=== PATIENT | male | born 1950 | race Hispanic/Latino ===

== ENCOUNTER 2020-11-06 20:44 | Inpatient (IN) | payer MEDICARE, OTHER ==
[~2020-11-06] VITALS: Ht 170.2 cm; Wt 88.9 kg
[~2020-11-06 20:44] MED LIST: ETOMIDATE 20MG VIAL IVP ONE; ROCURONIUM BROMIDE 10MG/1ML 5ML VL IV ONE
[2020-11-06] MEDS ORDERED: FUROSEMIDE 40MG VIAL ONE (20:49)
[2020-11-06] MEDS ORDERED: PROPOFOL 1000 MG/100 ML 100 ML IV ONE (20:50)
[2020-11-06 21:04] LABS: BASOPHILS % (AUTO) 0.8 % (0.0-5.0); EOSINOPHILS % (AUTO) 2.9 % (0.0-8.0); HEMATOCRIT 45.8 % (42-54); LYMPHOCYTES % (AUTO) 41.4 % (21.0-51.0); MEAN CORPUSCULAR HEMOGLOBIN 31.1 pg (27.0-33.0); MEAN CORPUSCULAR HGB CONC 31.9 g/dL (32.0-36.0); MEAN CORPUSCULAR VOLUME 97.4 fL (79-99); MONOCYTES % (AUTO) 7.8 % (3.0-13.0); NEUTROPHILS % (AUTO) 46.2 % (40.0-77.0); PLATELET COUNT (AUTO) 270 K/uL (130-400); RED CELL DISTRIBUTION WIDTH 14.5 % (11.0-15.5)
[2020-11-06 21:19] LABS: INR 0.98 (0.85-1.15); PROTHROMBIN TIME 10.7 SEC (9.6-11.6)
[2020-11-06 21:20] LABS: PARTIAL THROMBOPLASTIN TIME 25.9 SEC (26.3-35.5)
[2020-11-06 21:26] LABS: CARBON DIOXIDE 24 mmol/L (21-32); CHLORIDE 103 mmol/L (101-111); CREATININE 2.2 mg/dL (0.5-1.5); GLOMERULAR FILTR. RATE CALC 32 mL/min (>60); GLUCOSE,RANDOM 208 mg/dL (70-105); POTASSIUM 3.6 mmol/L (3.5-5.1); SODIUM SERUM 139 mmol/L (136-145); UREA NITROGEN, BLOOD 26 mg/dL (7-18)
[2020-11-06] MEDS ORDERED: CEFTRIAXONE 2GM VIAL ONE (21:29)
[2020-11-06 21:36] LABS: ALANINE AMINOTRANSFERASE 23 U/L (12-78); ALBUMIN 4.1 g/dL (3.5-5.0); ASPARTATE AMINOTRANSFERASE 17 U/L (10-37); BILIRUBIN,TOTAL 0.3 mg/dL (0.2-1.0); CREATINE KINASE, TOTAL 93 U/L (21-232); MYOGLOBIN 49 ng/mL (10-92); TROPONIN I < 0.04 ng/mL (0.00-0.06)
[2020-11-06 21:42] LABS: APPEARANCE,URINE CLEAR (CLEAR); BILIRUBIN,URINE NEGATIVE (NEGATIVE); COLOR,URINE YELLOW (YELLOW); GLUCOSE, URINE (UA) NEGATIVE (NEGATIVE); KETONES,URINE NEGATIVE (NEGATIVE); LEUKOCYTE ESTERASE ,URINE NEGATIVE (NEGATIVE); NITRATE,URINE NEGATIVE (NEGATIVE); OCCULT BLOOD,URINE TRACE-INTACT (NEGATIVE); PROTEIN,URINE 100 mg/dL (NEGATIVE); UROBILINOGEN,URINE 0.2 mg/dL (0.2-1.0)
[2020-11-06] MEDS ORDERED: FENTANYL 2500MCG+NS 250ML 250 ML IV SCH (21:45)
[2020-11-06] MEDS ORDERED: FENTANYL 2500MCG+NS 250ML 250 ML IV ONE (21:47)
[2020-11-06 21:49] LABS: WBC,URINE 0-1 /HPF (0-1)
[2020-11-06 21:50] LABS: BACTERIA,URINE Moderate /HPF (None Seen)
[2020-11-06 21:51] LABS: SQUAMOUS EPITHELIAL CELL,UR Rare /HPF (0-2)
[2020-11-06 21:58] LABS: ABG BASE EXCESS -7.1 mmol/L (-2.0-3.0); ABG OXYGEN SATURATION 88.5 % (95.0-99.0); ABG PCO2 67 mmHg (35-48)
[2020-11-06] MEDS ORDERED: DiphenhydrAMINE HCL 50 MG/ML VIAL IV PRN (22:00)
[2020-11-06] MEDS ORDERED: LACTULOSE 20 GM/30 ML UDCUP PO PRN (22:00)
[2020-11-06] MEDS ORDERED: NITROGLYCERIN 0.4 MG SL TAB SL PRN (22:00)
[2020-11-06] MEDS ORDERED: ONDANSETRON 4MG INJ IV PRN (22:00)
[2020-11-06] MEDS ORDERED: GUAIFENESIN-DM 200/20 MG 10 ML PO PRN (22:00)
[2020-11-06] MEDS ORDERED: VECURONIUM 10MG/10ML 50 MG in 0.9%NACL 50ML 50 ML IV SCH (22:00)
[2020-11-06] MEDS ORDERED: MAG/ALUM/SIMETH 30 ML UDCUP PO PRN (22:00)
[2020-11-06] MEDS ORDERED: CEFTRIAXONE 1G VIAL IV SCH (22:00)
[2020-11-06] MEDS ORDERED: ACETAMINOPHEN 325 MG TAB PO PRN ×2 (22:00)
[2020-11-06] MEDS ORDERED: DIPHENHYDRAMINE HCL 25 MG CAPSULE PO PRN (22:00)
[2020-11-06] MEDS ORDERED: DEXMEDETOMIDINE HCL 400 MCG in 0.9%NACL 100ML 100 ML IV SCH (22:00)
[2020-11-06] MEDS ORDERED: LABETALOL 20MG SYG IV PRN (22:15)
[2020-11-07] VITALS (9 sets, daily range): BP systolic 114–152; BP diastolic 63–72
[2020-11-07] MEDS ORDERED: PROPOFOL 1000 MG/100 ML 100 ML IV ONE ×2 (00:13→08:31)
[2020-11-07] MEDS ORDERED: VECURONIUM 10MG/10ML IV ONE (01:02)
[2020-11-07] MEDS ORDERED: NOREPINEPHRIN 4MG/NS 250ML 250 ML IV ONE (02:47)
[2020-11-07] MEDS ORDERED: ATROPINE 1MG SYG IVP ONE (02:58)
[2020-11-07 03:46] LABS: BASOPHILS % (AUTO) 0.4 % (0.0-5.0); EOSINOPHILS % (AUTO) 0.1 % (0.0-8.0); HEMATOCRIT 42.3 % (42-54); LYMPHOCYTES % (AUTO) 12.6 % (21.0-51.0); MEAN CORPUSCULAR HEMOGLOBIN 30.7 pg (27.0-33.0); MEAN CORPUSCULAR HGB CONC 31.2 g/dL (32.0-36.0); MEAN CORPUSCULAR VOLUME 98.4 fL (79-99); MONOCYTES % (AUTO) 7.7 % (3.0-13.0); NEUTROPHILS % (AUTO) 77.3 % (40.0-77.0); PLATELET COUNT (AUTO) 215 K/uL (130-400); RED CELL DISTRIBUTION WIDTH 14.6 % (11.0-15.5); WHITE BLOOD COUNT (AUTO) 18.6 K/uL (4.8-10.8)
[2020-11-07 04:05] LABS: ALBUMIN 3.4 g/dL (3.5-5.0); BILIRUBIN,TOTAL 0.2 mg/dL (0.2-1.0); CREATININE 2.7 mg/dL (0.5-1.5); CRP QUANTITATIVE 2.5 mg/L (0.00-9.0); MAGNESIUM 2.1 mg/dL (1.80-2.40); PHOSPHORUS 7.6 mg/dL (2.5-4.9); TOTAL PROTEIN, SERUM 7.7 g/dL (6.0-8.3)
[2020-11-07] MEDS ORDERED: AZITHROMYCIN 500MG+NS 250ML 250 ML IV ONE (04:23)
[2020-11-07 04:34] LABS: ABG BASE EXCESS -4.1 mmol/L (-2.0-3.0); ABG HCO3 25.4 mmol/L (21.0-28.0); ABG OXYGEN SATURATION 90.4 % (95.0-99.0); ABG PCO2 66 mmHg (35-48)
[2020-11-07] MEDS: FUROSEMIDE 40MG VIAL IV SCH ×2 (05:00→16:46)
[2020-11-07] MEDS: SODIUM BICARB 50MEQ 50ML VIAL IV SCH ×2 (05:00→12:00)
[2020-11-07] MEDS ORDERED: DEXTROSE 50%-WATER 25 GM/50 ML VIAL IV SCH ×2 (05:00→12:00)
[2020-11-07] MEDS: INSULIN HUMULIN R 100 UNIT/ML 3ML IV SCH ×2 (05:00→12:00)
[2020-11-07] MEDS: CACL 1GM SYG IVP SCH (05:00)
[2020-11-07] MEDS ORDERED: NOREPINEPHRINE BITARTRATE 16 MG in 0.9% NACL 250ML 250 ML IV SCH (07:30)
[2020-11-07] MEDS ORDERED: NOREPINEPHRINE 16MG/NS 250ML 250 ML IV PRN (07:30)
[2020-11-07 08:12] LABS: HEMOGLOBIN A1C 8.2 % (4.0-6.0)
[2020-11-07] MEDS ORDERED: CEFEPIME HCL 2 GM VIAL ONE (08:30)
[2020-11-07] MEDS ORDERED: FUROSEMIDE 40MG VIAL ONE (08:31)
[2020-11-07] MEDS ORDERED: FAMOTIDINE 20MG VIAL IV ONE (08:31)
[2020-11-07] MEDS ORDERED: ENOXAPARIN SODIUM 40 MG/0.4 ML SYRINGE SQ ONE (08:31)
[2020-11-07] MEDS ORDERED: SODIUM BICARB 8.4% 50ML SYRINGE IVP SCH (08:41)
[2020-11-07] MEDS ORDERED: MIDAZOLAM HCL 50 MG in 0.9%NACL 50ML 50 ML IV SCH (08:48)
[2020-11-07] MEDS ORDERED: FUROSEMIDE 40MG VIAL IV SCH (09:00)
[2020-11-07] MEDS ORDERED: CARVEDILOL 3.125 MG TABLET PO SCH (09:00)
[2020-11-07] MEDS ORDERED: DEXTROSE 50%-WATER 50 ML DISP.SYRIN IV PRN (09:45)
[2020-11-07] MEDS ORDERED: GLUCAGON 1MG KIT 1 MG ML IM PRN (09:45)
[2020-11-07 10:10] LABS: ABG BASE EXCESS -6.5 mmol/L (-2.0-3.0); ABG HCO3 20.5 mmol/L (21.0-28.0); ABG PCO2 46 mmHg (35-48)
[2020-11-07 10:29] LABS: CREATININE 2.7 mg/dL (0.5-1.5)
[2020-11-07] MEDS ORDERED: CALCIUM GLUC 1GM 1 GM in 0.9%NACL 100ML 100 ML IV SCH (12:00)
[2020-11-07] MEDS ORDERED: CALCIUM GLUC 1GM/10ML VIAL IV SCH (12:00)
[2020-11-07] MEDS: KAYEXALATE 15GM/60ML NG SCH (12:00)
[2020-11-07] MEDS ORDERED: DEXTROSE 50%-WATER 50 ML DISP.SYRIN IV SCH (12:15)
[2020-11-07] MEDS ORDERED: SODIUM BICARB 50MEQ 50ML VIAL 50 ML ONE (12:33)
[2020-11-07] MEDS ORDERED: KAYEXALATE 15GM/60ML ONE (13:02)
[2020-11-07] MEDS ORDERED: CALCIUM GLUC 1GM/10ML VIAL IV ONE (13:03)
[2020-11-07] MEDS ORDERED: DEXTROSE 50%-WATER 50 ML DISP.SYRIN IV ONE (13:03)
[2020-11-07] MEDS ORDERED: INSULIN HUMULIN R 100 UNIT/ML 3ML ONE (13:03)
[2020-11-07 14:17] LABS: POTASSIUM 3.7 mmol/L (3.5-5.1)
[2020-11-07] MEDS: PROPOFOL 1000 MG/100 ML 100 ML IV SCH ×2 (16:54→22:40)
[2020-11-07] MEDS: INSULIN HUMULIN R 100 UNIT/ML 3ML SQ SCH (18:00)
[2020-11-07] MEDS: LINEZOLID 600 MG/ISO-OSM 300 ML IV SCH ×2 (22:41→23:54)
[2020-11-07] MEDS: TICAGRELOR 90 MG TABLET PO SCH (22:41)
[2020-11-07] MEDS: AZITHROMYCIN 500MG+NS 250ML 250 ML IV SCH ×2 (22:41→23:56)
[2020-11-08] VITALS (45 sets, daily range): BP systolic 72–151; BP diastolic 43–85
[2020-11-08] MEDS: FUROSEMIDE 40MG VIAL IV SCH ×4 (04:26→22:00)
[2020-11-08] MEDS: SODIUM BICARB 50MEQ 50ML VIAL IV SCH ×2 (05:00→12:00)
[2020-11-08] MEDS: CACL 1GM SYG IVP SCH (05:00)
[2020-11-08] MEDS: INSULIN HUMULIN R 100 UNIT/ML 3ML IV SCH ×2 (05:00→12:00)
[2020-11-08 05:04] LABS: HEMATOCRIT 34.1 % (42-54); MEAN CORPUSCULAR HGB CONC 32.3 g/dL (32.0-36.0); MEAN CORPUSCULAR VOLUME 96.1 fL (79-99); RED BLOOD CELL COUNT(AUTO) 3.55 MIL/uL (4.50-6.20); RED CELL DISTRIBUTION WIDTH 14.7 % (11.0-15.5)
[2020-11-08 05:16] LABS: ABG BASE EXCESS -2.1 mmol/L (-2.0-3.0); ABG HCO3 22.1 mmol/L (21.0-28.0); ABG OXYGEN SATURATION 98.6 % (95.0-99.0); ABG PCO2 36 mmHg (35-48)
[2020-11-08 05:19] LABS: ALBUMIN 2.8 g/dL (3.5-5.0); BILIRUBIN,TOTAL 0.4 mg/dL (0.2-1.0); CREATININE 2.9 mg/dL (0.5-1.5); CRP QUANTITATIVE 33.1 mg/L (0.00-9.0); MAGNESIUM 2.4 mg/dL (1.80-2.40); PHOSPHORUS 3.9 mg/dL (2.5-4.9); POTASSIUM 3.3 mmol/L (3.5-5.1); TOTAL PROTEIN, SERUM 6.3 g/dL (6.0-8.3)
[2020-11-08] MEDS: TICAGRELOR 90 MG TABLET PO SCH ×2 (09:05→21:20)
[2020-11-08] MEDS: LINEZOLID 600 MG/ISO-OSM 300 ML IV SCH ×2 (09:14→21:20)
[2020-11-08] MEDS: CEFEPIME HCL 2 GM VIAL IVP SCH (09:15)
[2020-11-08] MEDS: FAMOTIDINE 20MG VIAL IV SCH (09:17)
[2020-11-08] MEDS: ENOXAPARIN SODIUM 40 MG/0.4 ML SYRINGE SQ SCH (09:18)
[2020-11-08] MEDS: ASPIRIN 81MG CHEW TAB PO SCH (09:20)
[2020-11-08] MEDS: KAYEXALATE 15GM/60ML NG SCH (12:00)
[2020-11-08] MEDS: INSULIN HUMULIN R 100 UNIT/ML 3ML SQ SCH ×3 (12:15→18:00)
[2020-11-08] MEDS: PROPOFOL 1000 MG/100 ML 100 ML IV SCH (12:28)
[2020-11-08 22:09] LABS: BASOPHILS % (AUTO) 0.3 % (0.0-5.0); EOSINOPHILS % (AUTO) 0.4 % (0.0-8.0); HEMATOCRIT 34.9 % (42-54); LYMPHOCYTES % (AUTO) 12.6 % (21.0-51.0); MEAN CORPUSCULAR HEMOGLOBIN 30.3 pg (27.0-33.0); MEAN CORPUSCULAR HGB CONC 31.2 g/dL (32.0-36.0); MEAN CORPUSCULAR VOLUME 96.9 fL (79-99); MONOCYTES % (AUTO) 8.4 % (3.0-13.0); NEUTROPHILS % (AUTO) 77.5 % (40.0-77.0); PLATELET COUNT (AUTO) 188 K/uL (130-400); RED CELL DISTRIBUTION WIDTH 15.2 % (11.0-15.5); WHITE BLOOD COUNT (AUTO) 15.4 K/uL (4.8-10.8)
[2020-11-08] MEDS: AZITHROMYCIN 500MG+NS 250ML 250 ML IV SCH (23:45)
[2020-11-08] MEDS ORDERED: POTASSIUM CHLORIDE 10MEQ/100ML 100 ML IV PRN (23:45)
[2020-11-09] VITALS (23 sets, daily range): BP systolic 101–197; BP diastolic 53–95
[2020-11-09] MEDS: INSULIN HUMULIN R 100 UNIT/ML 3ML SQ SCH ×4 (00:52→18:12)
[2020-11-09] MEDS: POTASSIUM CHLORIDE 10% ELIXIR 20 MEQ/15 ML UDCUP PO PRN ×3 (00:57→05:50)
[2020-11-09] MEDS: INSULIN HUMULIN R 100 UNIT/ML 3ML IV SCH ×2 (01:02→11:39)
[2020-11-09] MEDS: FUROSEMIDE 40MG VIAL IV SCH ×2 (01:03→05:50)
[2020-11-09] MEDS: CACL 1GM SYG IVP SCH (01:03)
[2020-11-09] MEDS: SODIUM BICARB 50MEQ 50ML VIAL IV SCH ×3 (01:04→11:52)
[2020-11-09 04:53] LABS: BASOPHILS % (AUTO) 0.4 % (0.0-5.0); EOSINOPHILS % (AUTO) 1.8 % (0.0-8.0); HEMATOCRIT 30.8 % (42-54); LYMPHOCYTES % (AUTO) 17.7 % (21.0-51.0); MEAN CORPUSCULAR HEMOGLOBIN 30.7 pg (27.0-33.0); MEAN CORPUSCULAR HGB CONC 32.5 g/dL (32.0-36.0); MEAN CORPUSCULAR VOLUME 94.5 fL (79-99); MONOCYTES % (AUTO) 8.5 % (3.0-13.0); PLATELET COUNT (AUTO) 184 K/uL (130-400); RED BLOOD CELL COUNT(AUTO) 3.26 MIL/uL (4.50-6.20); RED CELL DISTRIBUTION WIDTH 15.3 % (11.0-15.5); WHITE BLOOD COUNT (AUTO) 14.1 K/uL (4.8-10.8)
[2020-11-09 05:19] LABS: ALBUMIN 2.4 g/dL (3.5-5.0); BILIRUBIN,TOTAL 0.4 mg/dL (0.2-1.0); CREATININE 3.8 mg/dL (0.5-1.5); CRP QUANTITATIVE 168.7 mg/L (0.00-9.0); PHOSPHORUS 5.4 mg/dL (2.5-4.9); POTASSIUM 3.3 mmol/L (3.5-5.1); TOTAL PROTEIN, SERUM 6.4 g/dL (6.0-8.3)
[2020-11-09] MEDS: CEFEPIME HCL 2 GM VIAL IVP SCH (09:53)
[2020-11-09] MEDS: FAMOTIDINE 20MG VIAL IV SCH (09:53)
[2020-11-09] MEDS: ASPIRIN 81MG CHEW TAB PO SCH (09:53)
[2020-11-09] MEDS: SOLU-MEDROL 40MG VIAL IVP SCH ×2 (09:53→20:48)
[2020-11-09] MEDS: TICAGRELOR 90 MG TABLET PO SCH ×2 (09:53→20:49)
[2020-11-09] MEDS: ENOXAPARIN SODIUM 40 MG/0.4 ML SYRINGE SQ SCH (09:54)
[2020-11-09] MEDS: KAYEXALATE 15GM/60ML NG SCH (10:27)
[2020-11-09] MEDS ORDERED: ATOR10 PO (19:01)
[2020-11-09] MEDS ORDERED: PIOG15TA66 PO (19:01)
[2020-11-09] MEDS ORDERED: METO-408 PO (19:01)
[2020-11-09] MEDS ORDERED: AMLO-258 PO (19:01)
[2020-11-09] MEDS ORDERED: ASPI-1197 PO (19:01)
[2020-11-09] MEDS ORDERED: LISI20TA24 PO (19:01)
[2020-11-09] MEDS ORDERED: CLOP75TA14 PO (19:01)
[2020-11-09] MEDS ORDERED: FURO40TA5 PO (19:01)
[2020-11-09] MEDS ORDERED: METF-444 PO (19:01)
[2020-11-09] MEDS ORDERED: GABA300T25 PO (19:01)
[2020-11-09] MEDS ORDERED: FUROSEMIDE 20MG VIAL IV SCH (21:00)
[2020-11-09] MEDS: AZITHROMYCIN 500MG+NS 250ML 250 ML IV SCH (21:07)
[2020-11-09] MEDS ORDERED: LISINOPRIL 20 MG TABLET PO SCH (22:15)
[2020-11-09] MEDS ORDERED: METOPROLOL TARTRATE 25 MG TAB PO SCH (22:15)
[2020-11-09] MEDS: AMLODIPINE 5 MG TAB PO SCH (23:57)
[2020-11-10] VITALS (22 sets, daily range): BP systolic 117–167; BP diastolic 52–95
[2020-11-10 03:31] LABS: BASOPHILS % (AUTO) 0.1 % (0.0-5.0); HEMATOCRIT 35.1 % (42-54); LYMPHOCYTES % (AUTO) 4.9 % (21.0-51.0); MEAN CORPUSCULAR HEMOGLOBIN 30.6 pg (27.0-33.0); MEAN CORPUSCULAR HGB CONC 33.3 g/dL (32.0-36.0); MEAN CORPUSCULAR VOLUME 91.9 fL (79-99); MONOCYTES % (AUTO) 2.3 % (3.0-13.0); PLATELET COUNT (AUTO) 194 K/uL (130-400); RED BLOOD CELL COUNT(AUTO) 3.82 MIL/uL (4.50-6.20); RED CELL DISTRIBUTION WIDTH 14.4 % (11.0-15.5)
[2020-11-10 03:44] LABS: ALBUMIN 2.8 g/dL (3.5-5.0); BILIRUBIN,TOTAL 0.6 mg/dL (0.2-1.0); CREATININE 2.4 mg/dL (0.5-1.5); TOTAL PROTEIN, SERUM 7.4 g/dL (6.0-8.3)
[2020-11-10] MEDS: SODIUM BICARB 50MEQ 50ML VIAL IV SCH (03:59)
[2020-11-10] MEDS: CACL 1GM SYG IVP SCH (03:59)
[2020-11-10] MEDS: POTASSIUM CHLORIDE 10% ELIXIR 20 MEQ/15 ML UDCUP PO PRN ×3 (05:32→09:00)
[2020-11-10] MEDS: INSULIN HUMULIN R 100 UNIT/ML 3ML SQ SCH ×4 (06:16→20:40)
[2020-11-10] MEDS ORDERED: METOPROLOL SUCCINATE 50 MG TAB.SR.24H PO ONE (08:53)
[2020-11-10] MEDS: ASPIRIN 81MG CHEW TAB PO SCH (08:54)
[2020-11-10] MEDS: PANTOPRAZOLE 40 MG TAB DR PO SCH (08:54)
[2020-11-10] MEDS: ENOXAPARIN SODIUM 40 MG/0.4 ML SYRINGE SQ SCH (08:54)
[2020-11-10] MEDS: TICAGRELOR 90 MG TABLET PO SCH ×2 (08:55→20:05)
[2020-11-10] MEDS: FUROSEMIDE 40 MG TABLET PO SCH (08:55)
[2020-11-10] MEDS: AMLODIPINE 5 MG TAB PO SCH (08:55)
[2020-11-10] MEDS: CEFEPIME HCL 2 GM VIAL IVP SCH (08:58)
[2020-11-10] MEDS: METOPROLOL TARTRATE 50 MG TAB PO SCH ×2 (09:10→20:05)
[2020-11-10] MEDS: IPRATROPIUM/ALBUTEROL SULFATE 3 ML SOLUTION IH SCH ×2 (12:11→19:22)
[2020-11-10] MEDS: BUDESONIDE 0.25 MG/2 ML INH IH SCH (19:22)
[2020-11-10] MEDS: POTASSIUM BICARB/CIT AC 25 MEQ TABLET.EFF PO SCH (20:06)
[2020-11-10] MEDS: AZITHROMYCIN 500MG+NS 250ML 250 ML IV SCH (23:16)
[2020-11-11] VITALS (7 sets, daily range): BP systolic 134–159; BP diastolic 65–83
[2020-11-11] MEDS: CACL 1GM SYG IVP SCH (05:00)
[2020-11-11 05:19] LABS: BASOPHILS % (AUTO) 0.2 % (0.0-5.0); EOSINOPHILS % (AUTO) 1.2 % (0.0-8.0); HEMATOCRIT 32.9 % (42-54); LYMPHOCYTES % (AUTO) 18.4 % (21.0-51.0); MEAN CORPUSCULAR HEMOGLOBIN 30.4 pg (27.0-33.0); MEAN CORPUSCULAR HGB CONC 33.1 g/dL (32.0-36.0); MEAN CORPUSCULAR VOLUME 91.6 fL (79-99); MONOCYTES % (AUTO) 6.7 % (3.0-13.0); PLATELET COUNT (AUTO) 215 K/uL (130-400); RED BLOOD CELL COUNT(AUTO) 3.59 MIL/uL (4.50-6.20); RED CELL DISTRIBUTION WIDTH 14.4 % (11.0-15.5); WHITE BLOOD COUNT (AUTO) 16.2 K/uL (4.8-10.8)
[2020-11-11 05:39] LABS: CREATININE 1.9 mg/dL (0.5-1.5); MAGNESIUM 2.2 mg/dL (1.80-2.40); POTASSIUM 3.1 mmol/L (3.5-5.1)
[2020-11-11] MEDS: INSULIN HUMULIN R 100 UNIT/ML 3ML SQ SCH ×4 (06:49→21:17)
[2020-11-11] MEDS: POTASSIUM BICARB/CIT AC 25 MEQ TABLET.EFF PO SCH (09:00)
[2020-11-11] MEDS: ASPIRIN 81MG CHEW TAB PO SCH (10:00)
[2020-11-11] MEDS: AMLODIPINE 5 MG TAB PO SCH (10:00)
[2020-11-11] MEDS: KCL 20 MEQ ERTAB PO PRN ×3 (10:00→12:01)
[2020-11-11] MEDS: FUROSEMIDE 40 MG TABLET PO SCH (10:00)
[2020-11-11] MEDS: METOPROLOL TARTRATE 50 MG TAB PO SCH ×2 (10:00→21:17)
[2020-11-11] MEDS: TICAGRELOR 90 MG TABLET PO SCH ×2 (10:01→21:17)
[2020-11-11] MEDS: CEFEPIME HCL 2 GM VIAL IVP SCH (10:01)
[2020-11-11] MEDS: ENOXAPARIN SODIUM 40 MG/0.4 ML SYRINGE SQ SCH (10:01)
[2020-11-11] MEDS: PANTOPRAZOLE 40 MG TAB DR PO SCH (10:01)
[2020-11-11] MEDS: BUDESONIDE 0.25 MG/2 ML INH IH SCH (19:24)
[2020-11-11] MEDS: IPRATROPIUM/ALBUTEROL SULFATE 3 ML SOLUTION IH SCH (19:24)
[2020-11-11] MEDS: AZITHROMYCIN 500MG+NS 250ML 250 ML IV SCH (20:57)
[2020-11-11] MEDS: BENZONATATE 100 MG CAPSULE PO SCH (21:17)
[2020-11-12] MEDS: IPRATROPIUM/ALBUTEROL SULFATE 3 ML SOLUTION IH SCH ×2 (00:24→06:41)
[2020-11-12 04:53] LABS: HEMATOCRIT 35.4 % (42-54); MEAN CORPUSCULAR HEMOGLOBIN 30.7 pg (27.0-33.0); MEAN CORPUSCULAR HGB CONC 33.1 g/dL (32.0-36.0); MEAN CORPUSCULAR VOLUME 92.9 fL (79-99); PLATELET COUNT (AUTO) 227 K/uL (130-400); RED BLOOD CELL COUNT(AUTO) 3.81 MIL/uL (4.50-6.20); RED CELL DISTRIBUTION WIDTH 14.3 % (11.0-15.5); WHITE BLOOD COUNT (AUTO) 11.4 K/uL (4.8-10.8)
[2020-11-12] MEDS: CACL 1GM SYG IVP SCH (05:00)
[2020-11-12 05:02] LABS: ALBUMIN 2.8 g/dL (3.5-5.0); BILIRUBIN,TOTAL 0.5 mg/dL (0.2-1.0); CREATININE 1.7 mg/dL (0.5-1.5); MAGNESIUM 2.1 mg/dL (1.80-2.40); POTASSIUM 3.5 mmol/L (3.5-5.1); TOTAL PROTEIN, SERUM 6.9 g/dL (6.0-8.3)
[2020-11-12 05:07] LABS: BASOPHILS % (MANUAL) 2 % (0-2); EOSINOPHILS % (MANUAL) 3 % (1-6); LYMPHOCYTES % (MANUAL) 31 % (22-44); MAN.DIFF COMMENT-IMPRESSION MANUAL DIFFERENTIAL; MONOCYTES % (MANUAL) 15 % (2-9); SEGMENTED NEUTROPHILS % 49 % (40-70)
[2020-11-12 05:08] LABS: PLATELET MORPHOLOGY COMMENT ADEQUATE
[2020-11-12] MEDS: INSULIN HUMULIN R 100 UNIT/ML 3ML SQ SCH (05:47)
[2020-11-12] MEDS: BENZONATATE 100 MG CAPSULE PO SCH (05:57)
[2020-11-12 06:07] VITALS: BP 153/67
[2020-11-12] MEDS: BUDESONIDE 0.25 MG/2 ML INH IH SCH (06:41)
[2020-11-12 08:00] VITALS: BP 135/66
[2020-11-12] MEDS: ENOXAPARIN SODIUM 40 MG/0.4 ML SYRINGE SQ SCH (09:00)
[2020-11-12] MEDS: METOPROLOL TARTRATE 50 MG TAB PO SCH (09:33)
[2020-11-12] MEDS: CEFEPIME HCL 2 GM VIAL IVP SCH (09:33)
[2020-11-12] MEDS: TICAGRELOR 90 MG TABLET PO SCH (09:34)
[2020-11-12] MEDS: AMLODIPINE 5 MG TAB PO SCH (09:34)
[2020-11-12] MEDS: POTASSIUM BICARB/CIT AC 25 MEQ TABLET.EFF PO SCH (09:34)
[2020-11-12] MEDS: PANTOPRAZOLE 40 MG TAB DR PO SCH (09:34)
[2020-11-12] MEDS: ASPIRIN 81MG CHEW TAB PO SCH (09:34)
== END 2020-11-12 10:53 | disposition home or self-care (01) | DRG 871 ==
LOC: EDH 20:44 → EDHIP 22:00 → 2CH 11-07 14:45 → 4CH 11-10 21:30
PROVIDERS: ADMIT Family Medicine; ATTEND Family Medicine
PROC: 5A1945Z Respiratory Ventilation, 24-96 Consecutive Hours (ICD-10-PCS; principal; 2020-11-06)
PROC: 0BH17EZ Insertion of Endotracheal Airway into Trachea, Via Natural or Artificial Opening (ICD-10-PCS; 2020-11-06)
DX: A41.9 Sepsis, unspecified organism (principal); R57.0 Cardiogenic shock; R65.21 Severe sepsis with septic shock; J18.9 Pneumonia, unspecified organism; J80 Acute respiratory distress syndrome; I50.23 Acute on chronic systolic (congestive) heart failure; J44.0 Chronic obstructive pulmonary disease with (acute) lower respiratory infection; I13.0 Hypertensive heart and chronic kidney disease with heart failure and stage 1 through stage 4 chronic kidney disease, or unspecified chronic kidney disease; J44.1 Chronic obstructive pulmonary disease with (acute) exacerbation; I42.9 Cardiomyopathy, unspecified; E87.0 Hyperosmolality and hypernatremia; N17.9 Acute kidney failure, unspecified; E87.5 Hyperkalemia; N18.9 Chronic kidney disease, unspecified; E11.22 Type 2 diabetes mellitus with diabetic chronic kidney disease; I25.10 Atherosclerotic heart disease of native coronary artery without angina pectoris; Z20.822 Contact with and (suspected) exposure to COVID-19; D64.9 Anemia, unspecified; E66.9 Obesity, unspecified; E87.6 Hypokalemia; Z79.899 Other long term (current) drug therapy; Z68.30 Body mass index [BMI] 30.0-30.9, adult
CPT/HCPCS: 31500; 36415; 36600; 71045; 76770; 80048; 80053; 81001; 82010; 82435; 82550; 82728; 82803; 82947; 82948; 83036; 83605; 83615; 83735; 83874; 83880; 84100; 84132; 84145; 84295; 84484; 85018; 85025; 85027; 85378; 85610; 85730; 86140; 86900; 86901; 87040; 87088; 87426; 87449; 92610; 93005; 93306; 93356; 94002; 94003; 94640; 94664; 97039; G0378; J0456; J0461; J0610; J0692; J0696; J1650; J1815; J1940; J2020; J2704; J2920; J3010; J3490; J7050; J7070; U0003

== ENCOUNTER → 2021-03-25 | Outpatient (CLI) | payer OTHER ==
[~2021-03-25] MED LIST changes: +AMLO-258 PO; +ASPI-1197 PO; +ATOR10 PO; +CLOP75TA14 PO; -ETOMIDATE 20MG VIAL IVP ONE; +FURO40TA5 PO; +GABA300T25 PO; +LISI20TA24 PO; +METF-444 PO; +METO-408 PO; +PIOG15TA66 PO; +REGADENOSON 0.4 MG/5 ML PF SYG IVP SCH; -ROCURONIUM BROMIDE 10MG/1ML 5ML VL IV ONE
== END | disposition home or self-care (01) ==
LOC: SHCH 08:20
PROVIDERS: ATTEND Internal Medicine
DX: R07.9 Chest pain, unspecified (principal)
CPT/HCPCS: 78452; 93017; 96374; A9500 ×2; J2785